=== PATIENT | female | born 1970 | race Caucasian/White ===

== ENCOUNTER 2020-06-05 08:28 | Outpatient (REF) | payer OTHER, SELFPAY ==
[2020-06-09 20:12] LABS: HPV mRNA E6/E7 Not Detected (Not Detected)
== END 2020-06-05 08:29 | disposition home or self-care (01) ==
LOC: HO.LAB 08:28
PROVIDERS: Visit Provider Obstetrics & Gynecology
DX: Z01.419 Encounter for gynecological examination (general) (routine) without abnormal findings (principal)
CPT/HCPCS: 87624; 88142

== ENCOUNTER → 2020-10-16 08:19 | Outpatient (BNVA) | payer OTHER, SELFPAY | PROVIDERS: PCP Internal Medicine; Visit Provider Obstetrics & Gynecology ==

== ENCOUNTER 2020-10-20 07:59 | Outpatient (REF) | payer OTHER, SELFPAY ==
--- NOTE | ~2020-10-20 | MM_ITS ---
EXAMINATION: MM DIAGNOSTIC DIGITAL BREAST TOMOSYNTHESIS, BILATERAL US DIAGNOSTIC ULTRASOUND BREAST, RIGHT CLINICAL INFORMATION: Palpable finding periareolar 9:00 right breast at clinical exam. Due for yearly. The lifetime risk of breast cancer based on the Tyrer-Cuzick Model is 10%. COMPARISON: Mammography: 01/19/2019, 01/06/2018, 09/08/2016, targeted left breast ultrasound 01/19/2019 and targeted right breast ultrasound 07/29/2015. TECHNIQUE: Digital breast tomosynthesis is performed in both the craniocaudal and mediolateral oblique views along with computer-aided detection (CAD). Synthesized 2D images are generated from the tomosynthesis. Ultrasound right breast is targeted to the area of clinical concern outer right breast. Grayscale imaging and color Doppler are performed without and with harmonics. FINDINGS: The breasts are heterogeneously dense, which may obscure small masses (ACR BI-RADS breast composition Category c). The right breast has a 2.1 cm periareolar mass 9:30 o'clock position with smooth but obscured margins corresponding to the clinical history. The remainder of the breasts show no significant mass or architectural abnormality. There is an no abnormal calcifications. The axilla and skin contours are unremarkable. Ultrasound right breast demonstrates dominant simple cyst 10:00 position corresponding to area of palpable concern and measuring 2.7 x 2.3 x 1.9 cm. There are several adjacent subcentimeter satellite cysts in the targeted area. No solid mass or architectural abnormality. Results are discussed with the patient at time of visit. MM/MM tomosynthesis diagnostic BI IMPRESSION: 1. Right: Fibrocystic changes with dominant simple cyst at site of palpable concern anterior outer right breast measuring approximately 2.7 x 2.3. x 1.9 cm. 2. Left: No significant changes from prior studies. ASSESSMENT: BI-RADS 2: Benign RECOMMENDATION: Routine annual mammography screening. This patient's information was entered into a reminder system with a target due date for their next mammogram.
== END 2020-10-20 08:00 | disposition home or self-care (01) ==
LOC: HO.MAMMO 07:59
PROVIDERS: Visit Provider Obstetrics & Gynecology
DX: N63.15 Unspecified lump in the right breast, overlapping quadrants (principal)
CPT/HCPCS: 76642; 77062; 77066

== ENCOUNTER → 2020-10-27 10:58 | Outpatient (BNVA) | payer OTHER, SELFPAY | PROVIDERS: PCP Internal Medicine; Visit Provider Obstetrics & Gynecology ==

== ENCOUNTER → 2020-10-31 09:12 | Outpatient (BNVA) | payer OTHER, SELFPAY | PROVIDERS: PCP Internal Medicine; Visit Provider Surgery ==

== ENCOUNTER → 2021-06-09 08:29 | Outpatient (BNVA) | payer OTHER, SELFPAY | PROVIDERS: PCP Internal Medicine; Visit Provider Obstetrics & Gynecology ==

== ENCOUNTER 2021-07-22 08:12 | Outpatient (REF) | payer OTHER, SELFPAY ==
--- NOTE | ~2021-07-22 | MM_ITS ---
EXAMINATION: MM SCREENING DIGITAL BREAST TOMOSYNTHESIS, BILATERAL CLINICAL INFORMATION: Screening. Asymptomatic. The lifetime risk of breast cancer based on the Tyrer-Cuzick Model is 8%. COMPARISON: Mammography: 10/20/2020, 01/19/2019, 01/06/2018, 09/06/2016; right breast ultrasound 10/20/2020, left breast ultrasound 01/19/2019 TECHNIQUE: Digital breast tomosynthesis is performed in both the craniocaudal and mediolateral oblique views along with computer-aided detection (CAD). Synthesized 2D images are generated from the tomosynthesis. FINDINGS: The breasts are heterogeneously dense, which may obscure small masses (ACR BI-RADS breast composition Category c). There is a fibrocystic parenchymal pattern again noted. Dominant cyst periareolar upper outer right breast is decreased. There is no significant mass or architectural abnormality. No abnormal calcifications. The axilla and skin contours are unremarkable. MM/MM tomosynthesis screening BI IMPRESSION: No mammographic evidence of malignancy. ASSESSMENT: BI-RADS 2: Benign RECOMMENDATION: Routine annual mammography screening. This patient's information was entered into a reminder system with a target due date for their next mammogram.
== END 2021-07-22 08:13 | disposition home or self-care (01) ==
LOC: HO.MAMMO 08:12
PROVIDERS: Visit Provider Obstetrics & Gynecology
DX: Z12.31 Encounter for screening mammogram for malignant neoplasm of breast (principal)
CPT/HCPCS: 77063; 77067

== ENCOUNTER → 2021-09-10 09:24 | Outpatient (BNVA) | payer OTHER, SELFPAY | PROVIDERS: PCP Internal Medicine; Referring Provider Internal Medicine; Visit Provider Physician Assistant ==

== ENCOUNTER 2022-01-11 09:05 | Day surgery (SDC) | payer OTHER, SELFPAY ==
[2022-01-05 16:15] VITALS: BMI 20.4
--- NOTE | 2022-01-08 10:10 | HO.ANESPROP2 ---
Documented by User: Clemencia Bey NP 01/08/22 10:10 HPI - Anesthesia Eval Consult details Narrative: 52yo Colonoscopy [facility] Active Problems Active Problems: All Active Problems (Updated 09/10/21 @ 09:56 by Christal Han PA-C) Encounter for screening colonoscopy (Acute) Breast lump (Acute) Well woman exam (Acute) Family History Family History (Updated 09/10/21 @ 09:54 by Christal Han PA-C) Unknown No family history of colorectal cancer Surgical History Surgical History (Updated 01/11/22 @ 09:11 by Carly Quintanilla) No pertinent past surgical history Social History Social History (Updated 09/10/21 @ 09:41 by Christal Han PA-C) Household Members Other:: single, 2 kids Alcohol intake: never Patient Tobacco Use Status: Never used Tobacco Use of substances other than those prescribed or required for medical reasons: No Are you DNR?: No Advance Directives: No Advance Directives Information Provided: Yes Advance Directives on File: No Sexual orientation: Straight/Heterosexual Gender identity: Female Meds Allergies Allergy/AdvReac Type Severity Reaction Status Date / Time amoxicillin Allergy Unknown unknown Verified 01/11/22 09:11 Home Medications Medication Instructions Recorded Confirmed Last Taken Type levonorgestrel 20 mcg/24 hours (7 intrauterine 06/05/20 10/31/20 Unknown History yrs) 52 mg intrauterine device (Mirena) Exam Exam Date and Time: January 08, 2022 1010 Height,Weight and Vital Signs: Height 5 ft 4 in Weight 53.977 kg Assessment and Plan Assessment Anesthesia Assessment: Chart Reviewed Documented by User: Svetlana Hickey MD 01/11/22 09:28 [facility] Family History Family History (Updated 09/10/21 @ 09:54 by Christal Han PA-C) Unknown No family history of colorectal cancer Family history of problems with anesthesia: No Surgical History Surgical History (Updated 01/11/22 @ 09:11 by Carly Quintanilla) No pertinent past surgical history History of Problems with Anesthesia: No Social History Social History (Updated 09/10/21 @ 09:41 by Christal Han PA-C) Household Members Other:: single, 2 kids Alcohol intake: never Patient Tobacco Use Status: Never used Tobacco Use of substances other than those prescribed or required for medical reasons: No Are you DNR?: No Advance Directives: No Advance Directives Information Provided: Yes Advance Directives on File: No Sexual orientation: Straight/Heterosexual Gender identity: Female Meds Allergies Allergy/AdvReac Type Severity Reaction Status Date / Time amoxicillin Allergy Unknown unknown Verified 01/11/22 09:11 Home Medications Medication Instructions Recorded Confirmed Last Taken Type levonorgestrel 20 mcg/24 hours (7 intrauterine 06/05/20 10/31/20 Unknown History yrs) 52 mg intrauterine device (Mirena) Exam Airway Mallampati Class: II TM Dist: >3cm Neck ROM: Full Heart: rrr Lungs: cta Assessment and Plan Assessment Anesthesia Assessment: Anesthesia Plan Discussed and Chart Reviewed Final Anesthetic Review Family History of Problems with Anesthesia: No History of Problems with Anesthesia: No NPO: Yes ASA Class: II Final Preanesthetic Review: No Changes in Pt Med Stat, Meds/Allgs Chart Reviewed and Consent Obtained/Reviewed Patient Risk: Intermediate Procedure Risk: Intermediate Anesthetic Plan Anesthetic Plan: MAC: Disposition: Standard PACU
[2022-01-11 09:20] VITALS: BMI 19.7
[2022-01-11 09:21] VITALS: BP 114/86; PULSE 73; RESP 16; TEMP 37.1; O2SAT 100
--- NOTE | 2022-01-11 09:31 | MHC.SHP ---
Pre-Procedural Eval Section A Date of Service: 01/11/22 The patient is an INPATIENT: No The History & Physical has been completed within 30 days and I have reviewed it.: No Section B Chief Complaint: screening Details of Present Illness: Colon cancer screening Relevant Family History (Specify if Yes): No Relevant Social History: None Present Medications: see Short Stay Collaborative assessment Medical History: Significant History (History of a breast lump) History of Previous Operations: No relevant previous surgery Allergies: Allergies Allergy/AdvReac Type Severity Reaction Status Date / Time amoxicillin Allergy Unknown unknown Verified 01/11/22 09:11 Review of Systems Sugical H&P ROS: Negative: Constitution, Cardiovascular, Respiratory and Gastrointestinal Exam Surgical H&P Exam: Normal: Heart, Normal: Lungs and Normal: Abdomen Plan Diagnosis/Plan: Unchanged I have reviewed the history and physical and performed a pertinent physical examination on my patient. No changes have occurred unless specified.
--- NOTE | 2022-01-11 09:35 | PM.OP ---
Brief Operative Note Date of Service: 01/11/22 Pre-op diagnosis: Colon cancer screening Post-op diagnosis: other (Diverticulosis, hemorrhoids) Procedure: COLONOSCOPY TILL CECUM Consent: Indications for the procedure and potential complications of bleeding, perforation, reaction to medications and missed diagnosis were discussed with the patient and informed consent was obtained. Instrument: Olympus PCF H 190 L variable stiffness pediatric colonoscope Monitoring: Vital signs and clinical assessment, intermittent blood pressure monitoring, continuous EKG monitoring, Pulse oximetry and Carbon Dioxide monitoring were done throughout the procedure. Colon withdrawl time was 11 minutes. Procedure: The patient was placed in the left lateral decubitis position and pre-procedure medications were administered. After a digital rectal examination of the ano-rectum, the video colonoscope was inserted into the rectum and advanced through the colon to the cecum. The colonoscope was slowly withdrawn in a retrograde panoramic fashion and the colon mucosa was carefully examined including a retroflexed view of the rectum. Findings and interventions are described below. Procedure Difficulty: Colon was long and tortuous and there was some loop formation. No maneuvers were required Findings: Terminal Ileum: Not evaluated Cecum: Normal Ascending Colon: Normal Transverse Colon: Normal Descending Colon: Normal Sigmoid Colon: Moderate diverticulosis Rectum: Normal Ano-rectum: Small internal hemorrhoids and mimi-anal skin tags Colon preparation: Excellent Impression and Post Procedure Diagnosis: Colonoscopy Findings: No polyps were detected Moderate diverticulosis seen in the []colon Small hemorrhoids on retroflexed exam. Plan: Repeat Colonoscopy in 10 years. Above findings were reviewed with the patient and diverticulosis handout was given in the discharge area Surgeon: Katharine Justice MD Anesthesia: MAC (Dr Saleem) Was an Slip Bridge Operator used for this Procedure?: Yes Slip Bridge Operator: Dasha Mcgowan Estimated blood loss (mL): 0 Pathology: none sent Condition: stable Disposition: PACU
[2022-01-11] MEDS: Lactated Ringers 1,000 ML 100 ML IVCONT (09:39)
--- NOTE | 2022-01-11 10:24 | P.OP_ITS ---
Operative Note Operative Note Date of Service: 01/11/22 Narrative: Pre-op diagnosis: Colon cancer screening Post-op diagnosis:?other (Diverticulosis, hemorrhoids) Procedure: COLONOSCOPY TILL CECUM Consent: Indications for the procedure and potential complications of bleeding, perforation, reaction to medications and missed diagnosis were discussed with the patient and informed consent was obtained. Instrument: Olympus PCF H 190 L variable stiffness pediatric colonoscope Monitoring: Vital signs and clinical assessment, intermittent blood pressure monitoring, continuous EKG monitoring, Pulse oximetry and Carbon Dioxide monitoring were done throughout the procedure. Colon withdrawl time was 11 minutes. Procedure: The patient was placed in the left lateral decubitis position and pre-procedure medications were administered. After a digital rectal examination of the ano-rectum, the video colonoscope was inserted into the rectum and advanced through the colon to the cecum. The colonoscope was slowly withdrawn in a retrograde panoramic fashion and the colon mucosa was carefully examined including a retroflexed view of the rectum. Findings and interventions are described below. Procedure Difficulty:? Colon was long and tortuous and there was some loop forma tion.? No maneuvers were required Findings: Terminal Ileum: Not evaluated Cecum:? Normal Ascending Colon:? Normal Transverse Colon:? Normal Descending Colon:? Normal Sigmoid Colon:? Moderate diverticulosis Rectum:? Normal Ano-rectum:? Small internal hemorrhoids and mimi-anal skin tags Colon preparation: Excellent ? Impression and Post Procedure Diagnosis: Colonoscopy Findings: No polyps were detected Moderate diverticulosis seen in the []colon Small hemorrhoids on retroflexed exam. Plan: Repeat Colonoscopy in 10 years. Above findings were reviewed with the patient and diverticulosis handout was given in the discharge area Surgeon: Katharine Justice MD Anesthesia:?MAC (Dr Saleem) Was an Director Of Distribution used for this Procedure?:?Yes Director Of Distribution:?Dasha Mcgowan Estimated blood loss (mL):?0 Pathology:?none sent Condition:?stable Disposition:?PACU
[2022-01-11 10:48] VITALS: BP 87/40; PULSE 79; RESP 16; TEMP 36.1; O2SAT 95
[2022-01-11 11:03] VITALS: BP 94/58; PULSE 65; RESP 18; O2SAT 98
[2022-01-11 11:18] VITALS: BP 100/59; PULSE 59; RESP 18; TEMP 36.2; O2SAT 97
== END 2022-01-11 11:48 | disposition home or self-care (01) ==
PROVIDERS: PCP Internal Medicine; Visit Provider Internal Medicine Gastroenterology
PROC: 0DJD8ZZ Inspection of Lower Intestinal Tract, Via Natural or Artificial Opening Endoscopic (ICD-10-PCS; CPT 45378; principal; 2022-01-11 10:10)
DX: Z12.11 Encounter for screening for malignant neoplasm of colon (principal); K57.30 Diverticulosis of large intestine without perforation or abscess without bleeding; K64.8 Other hemorrhoids; K64.4 Residual hemorrhoidal skin tags; Z88.1 Allergy status to other antibiotic agents
CPT/HCPCS: 45378

== ENCOUNTER 2022-06-24 09:04 | Outpatient (REF) | payer OTHER, SELFPAY ==
[2022-06-24 09:22] LABS: MANUAL DIFF FLAG NO
[2022-06-24 09:54] LABS: Basophils Percent Auto 0.5 % (0-2); Eosinophils Absolute Auto 0.1 X10*3/uL (0.0-0.4); Eosinophils Percent Auto 1.2 % (0-4); Hematocrit 43.7 % (37.0-47.0); Hemoglobin 14.3 g/dl (12.0-16.0); Imm Gran Abs Auto 0.03 X10*3/uL (0.00-0.03); Imm Gran Pct Auto 0.4 % (0.0-0.4); Lymphocytes Absolute Auto 2.1 X10*3/uL (1.2-4.9); Lymphocytes Percent Auto 28.7 % (20-40); Mean Corpuscular HGB Conc 32.7 g/dl (31.0-35.0); Mean Corpuscular Hemoglobin 29.3 pg (27.0-33.0); Mean Corpuscular Volume 89.5 fL (80.0-98.0); Monocytes Absolute Auto 0.5 X10*3/uL (0.1-1.2); Monocytes Percent Auto 7.1 % (2-11); Neutrophils Absolute Auto 4.6 x10*3/uL (2.0-8.3); Neutrophils Percent Auto 62.1 % (45-73); Platelet Count 326 X10*3/uL (160-400); Red Blood Count 4.88 X10*6/uL (4.20-5.50); Red Cell Distribution Width 12.7 % (11.0-16.0); White Blood Count 7.5 X10*3/uL (4.8-10.8)
[2022-06-24 12:05] LABS: Alanine Aminotransferase 21 U/L (0-31); Albumin Level 4.5 g/dL (3.5-5.0); Alkaline Phosphatase 73 U/L (39-117); Anion Gap 12 (12-20); Aspartate Amino Transferase 16 U/L (5-31); Bilirubin Total 0.7 mg/dL (0.0-1.0); Blood Urea Nitrogen 14 mg/dL (9-16); Calcium 9.8 mg/dL (8.4-10.2); Carbon Dioxide 28 mmol/L (22-29); Chloride 106 mmol/L (96-108); Cholesterol 223 mg/dL; Estimated Glomerular Filt Rate > 60; Glucose Fasting 89 mg/dL (60-99); HDL Cholesterol 69 mg/dL; LDL Cholesterol Calculated 139 mg/dl; Magnesium 2.2 mg/dL (1.6-2.6); Potassium 5.1 mmol/L (3.3-5.1); Sodium 141 mmol/L (135-145); TSH reflex Free T4 1.19 uIU/mL (0.32-4.0); Total Protein 6.9 g/dL (6.5-8.0); Triglycerides 77 mg/dL; Vitamin D 25-OH Total 38.7 ng/mL (>30)
[2022-06-24 12:23] LABS: Folate 15.4 ng/mL (> or = 4.0); Vitamin B12 389 pg/mL (200-900)
== END 2022-06-24 09:05 | disposition home or self-care (01) ==
LOC: HO.LAB 09:04
PROVIDERS: PCP Nurse Practitioner Family; Visit Provider Nurse Practitioner Family
DX: Z00.00 Encounter for general adult medical examination without abnormal findings (principal)
CPT/HCPCS: 36415; 80053; 80061; 82306; 82607; 82746; 83735; 84443; 85025

== ENCOUNTER 2022-07-23 08:36 | Outpatient (REF) | payer OTHER, SELFPAY ==
--- NOTE | ~2022-07-23 | MM_ITS ---
EXAMINATION: MM SCREENING DIGITAL BREAST TOMOSYNTHESIS, BILATERAL CLINICAL INFORMATION: Screening. Asymptomatic. The lifetime risk of breast cancer based on the Tyrer-Cuzick Model is 9%. COMPARISON: Mammography: 07/22/2021, 10/20/2020, 01/19/2019; right breast ultrasound 10/20/2020 TECHNIQUE: Digital breast tomosynthesis is performed in both the craniocaudal and mediolateral oblique views along with computer-aided detection (CAD). Synthesized 2D images are generated from the tomosynthesis. FINDINGS: The breasts are heterogeneously dense, which may obscure small masses (ACR BI-RADS breast composition Category c). There are no significant masses, abnormal calcifications, or other abnormalities. Been previously documented simple cyst upper outer right breast is substantially decreased from prior exam. No developing density or architectural abnormality. No significant changes. MM/MM tomosynthesis screening BI IMPRESSION: No mammographic evidence of malignancy. ASSESSMENT: BI-RADS 2: Benign RECOMMENDATION: Routine annual mammography screening. This patient's information was entered into a reminder system with a target due date for their next mammogram.
== END 2022-07-23 08:37 | disposition home or self-care (01) ==
LOC: HO.MAMMO 08:36
PROVIDERS: PCP Internal Medicine; Visit Provider Internal Medicine
DX: Z12.31 Encounter for screening mammogram for malignant neoplasm of breast (principal)
CPT/HCPCS: 77063; 77067

== ENCOUNTER → 2022-07-27 08:28 | Outpatient (BNVA) | payer OTHER, SELFPAY | PROVIDERS: PCP Internal Medicine; Visit Provider Obstetrics & Gynecology | DX: Z13.89 Encounter for screening for other disorder (principal) ==

== ENCOUNTER 2023-06-28 08:17 | Outpatient (AMB) | payer BC, SELFPAY ==
[2023-06-28 08:32] VITALS: BP 102/66; PULSE 61; O2SAT 100; BMI 20.6
--- NOTE | 2023-06-28 08:32 | A.OFFPC_ITS ---
Vital Signs 06/28/23 08:32 Height 5 ft 4 in Weight 120 lb 0.6 oz BMI 20.6 BP 102/66 Blood Pressure Location Lt brachial Position Sitting Pulse 61 Pulse Source Pulse Oximeter Pulse Oximetry (%) 100 Oxygen Delivery Method Room Air Intake Visit Reasons: Annual Exam Intake Note: Patient is here today for a physical. Allergies amoxicillin Allergy (Unknown, Verified 06/28/23 08:41) Rash Medication List - Last Reconciled 06/28/23 by TAE Estes levonorgestrel (Mirena) intrauterine Tobacco use date assessed: 06/28/23 Dental Screening Dental Screen Date: 06/28/23 Did you have a dental visit in the last 12 months?: Yes Did you have a dental problem in the last 6 months where you did not have access to dental care?: No Was dental information given to patient?: Patient has dentist HPI Annual Exam HPI Details Patient is a 53-year-old female who presents today for physical exam. Patient has an upcoming mammogram 07/2023. Colonoscopy up-to-date. Pap smear normal 05/2020. Patient declined tetanus vaccine. Denies concerns. No shortness of breath or chest pain. [facility] [place] Medical History (Updated 06/28/23 @ 08:50 by TAE Estes) Numbness of toes Surgical History History of colonoscopy Family History Unknown No family history of colorectal cancer Mother No problems noted. Father Alcoholism Social History Household Members Other:: single, 2 kids Housing: House Alcohol intake: never Patient Tobacco Use Status: Never used Tobacco service: No Current occupational status: employed Sexual orientation: Straight/Heterosexual Gender identity: Female Cognitive needs: No Hearing needs: No Vision needs: No Female Reproductive History Menstrual Age of Menarche: 15 Questionnaire PHQ-9 Over the last 2 weeks, how often have you been bothered by any of the following problems? 1. Little interest or pleasure in doing things: not at all 2. Feeling down, depressed, or hopeless: not at all 3. Trouble falling or staying asleep, or sleeping too much: not at all 4. Feeling tired or having little energy: not at all 5. Poor appetite or overeating: not at all 6. Feeling bad about yourself - or that you are a failure or have let yourself or your family down: not at all 7. Trouble concentrating on things, such as reading the newspaper or watching television: not at all 8. Moving or speaking so slowly that other people could have noticed. Or the opposite - being so fidgety or restless that you have been moving around a lot more than usual: not at all 9. Thoughts that you would be better off or of hurting yourself in some way: not at all Total score: 0 Depression Screening Interpretation: Negative Depression Screening Done: Yes 88994 - PHQ-9 Billing: Yes Source: Developed by Drs. Kash Villagomez, Valerie Hong, Cruz Taylor and colleagues, with an educational eliza from [employer]. Thrive Questionnaire Date Thrive assessed: 06/24/22 AUDIT C Alcohol Use Questionnaire (AUDIT-C) 1. How often do you have a drink containing alcohol?: Never 2. How many drinks containing alcohol do you have on a typical day when you are drinking?: 1 or 2 (0) 3. How often do you have six or more drinks on one occasion?: Never Total Score: 0 Score Reviewed/Action Taken: No BRANDI-7 AMB Questionnaire BRANDI-7 Date BRANDI - 7 assessed: 06/28/23 Feeling nervous, anxious, or on edge: 0 = Not at all Not being able to stop or control worryin = Not at all Worrying too much about different things: 0 = Not at all Trouble relaxin = Not at all Being so restless that it is hard to sit still: 0 = Not at all Becoming easily annoyed or irritable: 0 = Not at all Feeling afraid as if something awful might happen: 0 = Not at all Total BRANDI-7 score (0-4 normal; 5-9 mild; 10-14 moderate; 15-21 severe): 0 Source: Developed by Drs. Kash Villagomez, Valerie Hong, Cruz Taylor and colleagues, with an educational eliza from [employer]. BRANDI-7 Assessment Billing BRANDI-7 Assessment Tool: BRANDI-7 Assessment 64963 Review of Systems Const Denies body aches, Denies chills, Denies fever(s) and Denies headache(s) Eyes Denies change in vision ENT Denies dizziness, Denies otalgia, Denies headache(s), Denies nasal discharge, Denies sinus pain and Denies sore throat Card Denies chest pain, Denies edema, Denies lightheadedness and Denies dyspnea Resp Denies cough, Denies dyspnea and Denies wheezing GI Denies abdominal pain, Denies constipation, Denies diarrhea, Denies nausea and Denies vomiting Denies dysuria Musc Denies myalgias Skin/Breast Denies rash Neuro Denies dizziness and Denies headache(s) Aller/Immun Denies wheezing Physical exam (Primary Care) Vital Signs: Last Vital Signs Pulse 61 06/28/23 08:32 BP 102/66 06/28/23 08:32 Pulse Ox 100 06/28/23 08:32 Oxygen Delivery Method Room Air 06/28/23 08:32 BMI result Body Mass Index 20.6 Tobacco/Smoking Status: Tobacco use Status Tobacco use date assessed 06/28/23 06/28/23 08:39 Patient Tobacco Use Status Never used Tobacco 06/28/23 08:39 PHQ-9: PHQ-9 Score PHQ-9: Total score 0 06/28/23 08:39 Depression Screening Interpretation: Negative Thrive Assessment: Date of Thrive Assessment Date Thrive assessed 06/24/22 06/28/23 08:39 Const General: cooperative and no acute distress Orientation/consciousness: patient oriented x3 HENMT Head: Yes normocephalic and Yes atraumatic Ears: TM's normal bilaterally Face and sinus: Yes sinuses nontender Mouth: oropharynx normal and moist mucous membranes Throat: Yes posterior oropharynx normal Eyes General: appearance normal, both eyes and all related structures Pupils: Equal, round and reactive pupils present EOM: EOMs intact bilaterally Neck Neck: Yes normal visual inspection, Yes full ROM and Yes no lymphadenopathy Thyroid: Thyroid normal Resp Effort & Inspection: normal respiratory effort and able to speak in complete sentences Auscultation: clear to auscultation bilaterally, no crackles, no rales, no rhonchi and no wheezes Cardio Rate: regular rate Rhythm: regular rhythm Heart sounds: S1 normal heart sound present, S2 normal heart sound present and no murmurs GI Palpation (GI): Soft to palpation, not firm, nontender, no guarding, not rigid and no hepatosplenomegaly Auscultation: normal bowel sounds General: No CVA tenderness Back/Spine/Pelvis Back: No CVA tenderness Skin General skin exam: no rashes or lesions noted Neuro General: patient oriented x3 Cranial nerves: Yes Equal, round and reactive pupils present Gait exam (Neuro): Normal gait present Extrem General: Yes full ROM and No edema Assessment and Plan Assessment & Plan (1) Adult general medical exam: Comment: Tdap declined. Covid-19 IZs Pfizer x3. Pap smear (-) 05/2020 [facility]. Code(s): Z00.00 - Encounter for general adult medical examination without abnormal findings Plan: Repeat in 1 year Blood work ordered Orders: Orders Lipid Panel Today Z00.00 - Encounter for general adult medical examination without abnormal findings Comprehensive [place]. Panel Fast Today Z00.00 - Encounter for general adult medical examination without abnormal findings TSH reflex Free T4 Today Z00.00 - Encounter for general adult medical examination without abnormal findings Vitamin D 25-OH Total Today Z00.00 - Encounter for general adult medical examination without abnormal findings Complete Blood Count Auto Diff Today Z00.00 - Encounter for general adult medical examination without abnormal findings Coding Level of Care Code Est Pt Prev Care 40-64y(13079) Diagnoses Adult general medical exam Z00.00 Additional Codes BRANDI-7 Assessment Billing - BRANDI-7 Assessment Tool: BRANDI-7 Assessment [id number] ([id number])
== END 2023-06-28 08:55 | disposition home or self-care (01) ==
PROVIDERS: Visit Provider Nurse Practitioner Family
DX: Z00.00 Encounter for general adult medical examination without abnormal findings (principal)
CPT/HCPCS: 99396

== ENCOUNTER 2023-07-22 08:23 | Outpatient (REF) | payer BC, SELFPAY | END 2023-07-22 08:24 | disposition home or self-care (01) | LOC: HO.HMGCLDS 08:23 | PROVIDERS: PCP Internal Medicine; Visit Provider Nurse Practitioner Family | DX: Z00.00 Encounter for general adult medical examination without abnormal findings (principal) | CPT/HCPCS: 36415; 80053; 80061; 82306; 84443; 85025 ==

== ENCOUNTER → 2023-07-29 08:30 | Outpatient (BNV) | payer BC, SELFPAY | PROVIDERS: PCP Internal Medicine; Visit Provider Radiology Diagnostic Radiology | DX: Z12.31 Encounter for screening mammogram for malignant neoplasm of breast (principal) | CPT/HCPCS: 77063; 77067 ==

== ENCOUNTER 2023-07-29 08:31 | Outpatient (REF) | payer BC, SELFPAY | END 2023-07-29 08:32 | disposition home or self-care (01) | LOC: HO.MAMMO 08:31 | PROVIDERS: PCP Internal Medicine; Visit Provider Internal Medicine | DX: Z12.31 Encounter for screening mammogram for malignant neoplasm of breast (principal) | CPT/HCPCS: 77063; 77067 ==

== ENCOUNTER 2023-08-01 08:28 | Outpatient (AMB) | payer BC, SELFPAY ==
--- NOTE | 2023-08-01 08:31 | MHC.OFFVIS ---
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 No complaints. Last Pap/HPV was negative in 06/06 Last Mammogram was in 08/10, the results are still pending Last Colonoscopy was in 01/06, the recommendation was to repeat 10 years [facility] Medical History Numbness of toes Surgical History History of colonoscopy Family History Unknown No family history of colorectal cancer Mother No problems noted. Father Alcoholism Social History Household Members Other:: single, 2 kids Housing: House Alcohol intake: never Patient Tobacco Use Status: Never used Tobacco service: No Current occupational status: employed Sexual orientation: Straight/Heterosexual Gender identity: Female Cognitive needs: No Hearing needs: No Vision needs: No Female Reproductive History Menstrual Age of Menarche: 15 control method: progestin IUCD (Mirena 10/2019) Total pregnancies: 2 Full term: 2 Number of Living Children: 2 Date of last pap smear: 06/05/20 (neg pap and hpv) History of abnormal pap smear: No Date of Mammogram: 07/29/23 Review of Systems Const All systems reviewed & are unremarkable except as noted in HPI and below Card Reports as per HPI Resp Reports as per HPI GI Reports as per HPI and Reports no additional complaints Reports as per HPI Physical Exam Const General: cooperative, healthy appearing and comfortable Chest Chest palpation & inspection: normal inspection of the chest and normal palpation of entire chest wall Breast/axilla inspection: normal inspection of the breasts and normal inspection of the axillae Breast/axilla palpation: normal palpation of the breasts, normal palpation of the axillae and no axillary lymphadenopathy Resp Effort & Inspection: normal respiratory effort Auscultation: clear to auscultation bilaterally Percussion: percussion normal Cardio Palpation: normal PMI Rate: regular rate Rhythm: regular rhythm Heart sounds: no murmurs and no rubs Peripheral pulses: Peripheral pulses 2+ throughout GI Inspection: Yes normal to inspection Palpation (GI): Soft to palpation, nontender, no guarding, not rigid and No hepatosplenomegaly present Percussion: Yes normal to percussion Auscultation: normal bowel sounds Rectal Exam - Female: deferred General: Yes bladder normal to palpation External Female Exam: No lesion Speculum Exam - Vagina: normal appearance of the vagina, normal palpation, normal vaginal discharge and not erythematous Speculum Exam - Cervix: normal appearance of the cervix and normal palpation Bimanual exam- vagina & uterus: normal bimanual exam, normal palpation, uterine size normal, bladder normal to palpation, consistency normal and normal palpation Bimanual Exam- Adnexa, other: normal adnexae, no masses and no tenderness Assessment & Plan Assessment & Plan (1) Well woman exam: Code(s): Z01.419 - Encounter for gynecological examination (general) (routine) without abnormal findings Plan: Co testing not indicated this year. Counseled the patient about the recommended dietary allowance of 1200 mg of Calcium & 600 IU of vitamin D. The patient was instructed to perform monthly self-breast exams and schedule annual exam in a year. All questions answered and the patient verbalized understanding. Coding Level of Care Code Est Pt Prev Care 40-64y(51815) Diagnoses Well woman exam Z01.419
[2023-08-01 08:33] VITALS: BP 108/68; BMI 19.9
== END 2023-08-01 08:46 | disposition home or self-care (01) ==
PROVIDERS: Visit Provider Obstetrics & Gynecology
DX: Z01.419 Encounter for gynecological examination (general) (routine) without abnormal findings (principal)
CPT/HCPCS: 99396

== ENCOUNTER → 2023-08-01 08:28 | Outpatient (BNVA) | payer OTHER, SELFPAY | PROVIDERS: Visit Provider Obstetrics & Gynecology ==

== ENCOUNTER 2023-08-24 08:25 | Outpatient (AMB) | payer BC, SELFPAY ==
--- NOTE | 2023-08-24 08:29 | A.OFFPC_ITS ---
Vital Signs 08/24/23 08:32 Height 5 ft 4 in Weight 118 lb 6 oz BMI 20.3 BP 120/70 Blood Pressure Location Lt brachial Position Sitting Intake Visit Reasons: Abnormal labs/High Cholesterol Intake Note: Patient is here to follow up on abnormal lab with high cholesterol. Eligibility Counselor Required: No Accounts Specialist: Not Required per policy Accompanied by: Self / Same As Patient Allergies amoxicillin Allergy (Unknown, Verified 08/24/23 09:10) Rash Medication List - Last Reconciled 08/24/23 by Christophe Ayon MD levonorgestrel (Mirena) intrauterine Tobacco use date assessed: 08/24/23 Dental Screening Dental Screen Date: 08/24/23 Did you have a dental visit in the last 12 months?: Yes Did you have a dental problem in the last 6 months where you did not have access to dental care?: No Was dental information given to patient?: Patient has dentist HPI Abnormal labs/High Cholesterol HPI Details 53-year-old female presents to the [facility] to discuss her medical issues. I am assuming her care as her previous primary care provider has left the practice. Recent blood work done in June showed patient had an elevated blood cholesterol. Patient presents to discuss the findings. She is in good health and able to do all activities of daily living. Nonsmoker and currently on no medications. [facility] Medical History (Updated 08/24/23 @ 09:14 by Christophe Ayon MD) Hyperlipidemia, unspecified Numbness of toes Surgical History History of colonoscopy Family History Unknown No family history of colorectal cancer Mother No problems noted. Father Alcoholism Other Substance use disorder Social History Household Members Other:: single, 2 kids Housing: House Alcohol intake: never Patient Tobacco Use Status: Never used Tobacco e-Cigarette/Vaping Use: Never Used Second Hand Smoke Exposure: No service: No Current occupational status: employed Sexual orientation: Straight/Heterosexual Gender identity: Female Cognitive needs: No Hearing needs: No Vision needs: No Female Reproductive History Menstrual Age of Menarche: 15 Questionnaire PHQ-9 Over the last 2 weeks, how often have you been bothered by any of the following problems? 1. Little interest or pleasure in doing things: not at all 2. Feeling down, depressed, or hopeless: not at all 3. Trouble falling or staying asleep, or sleeping too much: not at all 4. Feeling tired or having little energy: not at all 5. Poor appetite or overeating: not at all 6. Feeling bad about yourself - or that you are a failure or have let yourself or your family down: not at all 7. Trouble concentrating on things, such as reading the newspaper or watching television: not at all 8. Moving or speaking so slowly that other people could have noticed. Or the opposite - being so fidgety or restless that you have been moving around a lot more than usual: not at all 9. Thoughts that you would be better off or of hurting yourself in some way: not at all Total score: 0 Depression Screening Interpretation: Negative Depression Screening Done: Yes Source: Developed by Drs. Kash Villagomez, Valerie Hong, Cruz Taylor and colleagues, with an educational eliza from [employer]. Thrive Questionnaire Date Thrive assessed: 08/24/23 I am a: Patient What is your living situation today?: I have a steady place to live Within the past 12 months, did the food you bought not last and you didn't have the money to get more?: Never true Within the past 12 months, did you worry whether your food would run out before you got money to buy more?: Never true Do you have trouble paying for medicines?: No Do you have trouble getting transportation to medical appointments?: No Do you have trouble paying your heating and electricity bill?: No Do you have trouble taking care of your child, family member or friend?: No Do you have trouble with day-to-day activities such as bathing, preparing meals, shopping, managing finances, etc.?: No Are you currently unemployed and looking for a job?: No Are you interested in more education?: No Currently or been in a relationship where the following occur: no concerns reported THRIVE Score: 0 AUDIT C Alcohol Use Questionnaire (AUDIT-C) 1. How often do you have a drink containing alcohol?: Never Total Score: 0 BRANDI-7 AMB Questionnaire BRANDI-7 Date BRANDI - 7 assessed: 08/24/23 Feeling nervous, anxious, or on edge: 0 = Not at all Not being able to stop or control worryin = Not at all Worrying too much about different things: 0 = Not at all Trouble relaxin = Not at all Being so restless that it is hard to sit still: 0 = Not at all Becoming easily annoyed or irritable: 0 = Not at all Feeling afraid as if something awful might happen: 0 = Not at all Total BRANDI-7 score (0-4 normal; 5-9 mild; 10-14 moderate; 15-21 severe): 0 Source: Developed by Drs. Kash Villagomez, Valerie Hong, Cruz Taylor and colleagues, with an educational eliza from [employer]. Physical exam (Primary Care) Vital Signs: Last Vital Signs BP 120/70 08/24/23 08:32 Care Plan Goal for BP management: Blood pressure is in range. Currently on no medications. BMI result Body Mass Index 20.3 Tobacco/Smoking Status: Tobacco use Status Tobacco use date assessed 08/24/23 08/24/23 08:37 Patient Tobacco Use Status Never used Tobacco 08/24/23 08:37 e-Cigarette/Vaping Use Never Used 08/24/23 08:37 PHQ-9: PHQ-9 Score PHQ-9: Total score 0 08/24/23 08:37 Depression Screening Interpretation: Negative Thrive Assessment: Date of Thrive Assessment Date Thrive assessed 08/24/23 08/24/23 08:37 Currently or been in a relationship where the following occur: no concerns reported Const General: cooperative and healthy appearing Nutritional Appearance: well nourished Orientation/consciousness: patient oriented x3 Limitations: no limitations HENMT Head: Yes normal to inspection Eyes General: appearance normal, both eyes and all related structures Neck Neck: Yes normal visual inspection Chest Chest palpation & inspection: normal palpation of entire chest wall Resp Effort & Inspection: normal respiratory effort Neuro General: patient oriented x3 Assessment and Plan Assessment & Plan (1) Hyperlipidemia, unspecified: Code(s): E78.5 - Hyperlipidemia, unspecified Plan: 15 minute discussion on the risks of elevated cholesterol. Patient has no other risk factors. She is a nonsmoker, her blood pressure is in normal range, and no family risk factors. She is hesitating to start medications. I agreed that we can control her elevated cholesterol with diet and exercise. Repeat lipid panel in 6 months. Coding Level of Care Code Est Pt Level 4 (65041) Diagnoses Hyperlipidemia, unspecified E78.5
[2023-08-24 08:32] VITALS: BP 120/70; BMI 20.3
== END 2023-08-24 09:11 | disposition home or self-care (01) ==
PROVIDERS: PCP Internal Medicine; Visit Provider Internal Medicine
DX: E78.5 Hyperlipidemia, unspecified (principal)
CPT/HCPCS: 99214

== ENCOUNTER 2024-06-26 08:21 | Outpatient (REF) | payer BC, SELFPAY ==
[2024-06-26 10:30] LABS: Hemoglobin 13.9 g/dl (12.0-16.0); Mean Corpuscular HGB Conc 33.1 g/dl (31.0-35.0); Mean Corpuscular Hemoglobin 30.4 pg (27.0-33.0); Mean Corpuscular Volume 91.9 fL (80.0-98.0); Mean Platelet Volume 10.5 fL (9.4-12.3); Platelet Count 267 X10*3/uL (160-400); Red Blood Count 4.57 X10*6/uL (4.20-5.50); Red Cell Distribution Width 13.7 % (11.0-16.0)
[2024-06-26 10:43] LABS: Appearance Urine Turbid; Color Urine Yellow; Glucose Urine UA Negative (Negative); Leukocyte Esterase Urine Negative (Negative); Nitrite Urine Negative (Negative); PH 5.5 (5.0-9.0); Specific Gravity - Urine >= 1.030 (1.005-1.025); UMIC TRIGGER UA YES; Urine Blood Small (1+) (Negative); Urine Ketones Trace mg/dL (Negative); Urine Protein Negative (Neg-Trace)
[2024-06-26 10:48] LABS: Bacteria Urine 1+ (None Seen); Hyaline Casts Urine 0-2 /LPF (0-2); WBC Urine 0-5 /HPF (0-5)
[2024-06-26 10:51] LABS: Alanine Aminotransferase 24 U/L (0-31); Albumin Level 4.3 g/dL (3.5-5.0); Alkaline Phosphatase 64 U/L (39-117); Anion Gap 13 (12-20); Aspartate Amino Transferase 22 U/L (5-31); Bilirubin Direct 0.2 mg/dL (0.0-0.5); Bilirubin Total 0.9 mg/dL (0.0-1.0); Blood Urea Nitrogen 16 mg/dL (9-16); Carbon Dioxide 28 mmol/L (22-29); Chloride 104 mmol/L (96-108); Cholesterol 226 mg/dL (<200); Estimated Glomerular Filt Rate > 60; Glucose Random 90 mg/dL (60-115); HDL Cholesterol 76 mg/dL (>40); LDL Cholesterol Calculated 136 mg/dL (<100); Potassium 4.4 mmol/L (3.3-5.1); Sodium 141 mmol/L (135-145); Total Protein 6.9 g/dL (6.5-8.0); Triglycerides 73 mg/dL (<150)
[2024-06-26 11:11] LABS: Thyroid Stimulating Hormone 1.62 uIU/mL (0.32-4.0)
--- OUTSIDE RECORDS SUMMARY | 2024-06-27 18:48 | XMS_ITS | Patient Health Record ---
Author Organization [facility] Address [address] [place] [address] Care Team Providers Care Switch Operator Name Role Phone Tonya Mccrary Primary Care Provider Unavaillizbet e Angel LuisRadha Unavailable [phone] Allergies Allergen (clinical drug ingredient) Drug/Non Drug Allergy documented on EMR Reaction Allergy Type Onset Date Status amoxicillin Amoxicillin rash Drug Allergy Act mary Reason For Referral No Information Medications Medication SIG (Take, Route, Frequency, Duration) Notes Start Date End Date Status Mirena Active Voltaren 1 % as directed Externally Active Immunizations Vaccine Route Administration Date Status Comme nts COVID-19 Pfizer BioNTech Vaccine Unknown 03/06/2021 Administered 09/12/20,10/04/20 Social History Tobacco Use: Social History Observation Description Date Details (start date - stop date) Never Smoker NA - NA Tobacco Use/Smoking Question Answer Notes Are you a: nonsmoker Additional Findings: Tobacco Non-User Current no n-smoker Alcohol Screen Question Answer Notes Did you have a drink containing alcohol in the p ast year? No Points 0 Interpretation Negative Tobacco use other than smoking: Question Answer Notes Are you an other tobacco user? No Problems Problem Type SNOMED Code ICD Code Onset Dates Problem Status W/U Status Risk Notes Problem Acquired hammer toe of left foot ([id number] 103) Other hammer toe(s) (acquired), left foot (M20.42) Active confirmed Plan Of Treatment Pending Test Test Name Order Date X ray : Foot, left 3V 08/16/2022 Insurance Providers Payer Name Payer Address Payer Phone Subscriber Number Group Number Insured Name Patient Relationship to Insured Coverage Start Date Coverage End Date [facility] [address] [place] [address] [phone] [id number] Epi Viera Spouse - patient is the spouse of the insured Medical (General) History Surgical History Surgery Date(Month/Year)
== END 2024-06-26 08:22 | disposition home or self-care (01) ==
LOC: HO.HMGCLDS 08:21
PROVIDERS: PCP Internal Medicine; Visit Provider Internal Medicine
DX: E78.5 Hyperlipidemia, unspecified (principal)
CPT/HCPCS: 36415; 80048; 80061; 80076; 81001; 84443; 85027

== ENCOUNTER 2024-07-05 08:56 | Outpatient (AMB) | payer BC, SELFPAY ==
--- NOTE | 2024-07-05 09:02 | A.OFFPC_ITS ---
Vital Signs 07/05/24 09:04 Height 5 ft 4 in Weight 119 lb BMI 20.4 BP 110/72 Blood Pressure Location Lt brachial Position Sitting Pulse 69 Pulse Source Pulse Oximeter Pulse Oximetry (%) 98 Oxygen Delivery Method Room Air Intake Visit Reasons: Annual exam Intake Note: Patient is here today for a physical. Pt decline flu shot today. Evaporator Operator Molasses Required: No Inspecting And Testing Lead Hand: Not Required per policy Accompanied by: Self / Same As Patient Allergies amoxicillin Allergy (Unknown, Verified 07/05/24 09:04) Rash Tobacco use date assessed: 07/05/24 Dental Screening Dental Screen Date: 08/24/23 [facility] Medical History (Updated 07/05/24 @ 09:23 by Christophe Ayon MD) Paresthesia of left foot Hyperlipidemia, unspecified Numbness of toes Surgical History (Updated 07/05/24 @ 09:09 by Christophe Ayon MD) History of colonoscopy (~01/06/22) Family History Unknown No family history of colorectal cancer Mother No problems noted. Father Alcoholism Other Substance use disorder Social History Household Members Other:: single, 2 kids Housing: House Alcohol intake: never Patient Tobacco Use Status: Never used Tobacco e-Cigarette/Vaping Use: Never Used Second Hand Smoke Exposure: No service: No Current occupational status: employed Sexual orientation: Straight/Heterosexual Gender identity: Female Cognitive needs: No Hearing needs: No Vision needs: No Female Reproductive History Menstrual Age of Menarche: 15 Questionnaire PHQ-9 Over the last 2 weeks, how often have you been bothered by any of the following problems? 1. Little interest or pleasure in doing things: not at all 2. Feeling down, depressed, or hopeless: not at all 3. Trouble falling or staying asleep, or sleeping too much: several days 4. Feeling tired or having little energy: not at all 5. Poor appetite or overeating: not at all 6. Feeling bad about yourself - or that you are a failure or have let yourself or your family down: not at all 7. Trouble concentrating on things, such as reading the newspaper or watching television: not at all 8. Moving or speaking so slowly that other people could have noticed. Or the opposite - being so fidgety or restless that you have been moving around a lot more than usual: not at all 9. Thoughts that you would be better off or of hurting yourself in some way: not at all Total score: 1 Source: Developed by Drs. Kash Villagomez, Valerie Hong, Cruz Taylor and colleagues, with an educational eliza from [employer]. Thrive Questionnaire Date Thrive assessed: 07/05/24 I am a: Patient What is your living situation today?: I have a steady place to live Within the past 12 months, did the food you bought not last and you didn't have the money to get more?: Never true Within the past 12 months, did you worry whether your food would run out before you got money to buy more?: Never true Do you have trouble paying for medicines?: No Do you have trouble getting transportation to medical appointments?: No Do you have trouble paying your heating and electricity bill?: No Do you have trouble taking care of your child, family member or friend?: No Do you have trouble with day-to-day activities such as bathing, preparing meals, shopping, managing finances, etc.?: No Are you currently unemployed and looking for a job?: No Are you interested in more education?: No Please select the resources that you would like help with: None Currently or been in a relationship where the following occur: No concerns reported THRIVE Score: 0 AUDIT C Alcohol Use Questionnaire (AUDIT-C) 1. How often do you have a drink containing alcohol?: 2-4 times a month 2. How many drinks containing alcohol do you have on a typical day when you are drinking?: 1 or 2 3. How often do you have six or more drinks on one occasion?: Never Total Score: 2 BRANDI-7 AMB Questionnaire BRANDI-7 Date BRANDI - 7 assessed: 08/24/23 Feeling nervous, anxious, or on edge: 0 = Not at all Not being able to stop or control worryin = Not at all Worrying too much about different things: 0 = Not at all Trouble relaxin = Not at all Being so restless that it is hard to sit still: 0 = Not at all Becoming easily annoyed or irritable: 0 = Not at all Feeling afraid as if something awful might happen: 0 = Not at all Total BRANDI-7 score (0-4 normal; 5-9 mild; 10-14 moderate; 15-21 severe): 0 Source: Developed by Drs. Kash Villagomez, Valerie Hong, Cruz Taylor and colleagues, with an educational eliza from [employer]. Physical exam (Primary Care) Vital Signs: Last Vital Signs Pulse 69 07/05/24 09:04 BP 110/72 07/05/24 09:04 Pulse Ox 98 07/05/24 09:04 Oxygen Delivery Method Room Air 07/05/24 09:04 BMI result Body Mass Index 20.4 Tobacco/Smoking Status: Tobacco use Status Tobacco use date assessed 07/05/24 07/05/24 09:08 Patient Tobacco Use Status Never used Tobacco 07/05/24 09:08 e-Cigarette/Vaping Use Never Used 07/05/24 09:08 PHQ-9: PHQ-9 Score PHQ-9: Total score 1 07/05/24 09:08 Thrive Assessment: Date of Thrive Assessment Date Thrive assessed 07/05/24 07/05/24 09:08 Currently or been in a relationship where the following occur: No concerns reported Coding Level of Care Code Est Pt Level 4 (58005) Complex EM visit Add On G2211 Diagnoses Hyperlipidemia, unspecified E78.5 Paresthesia of left foot R20.2 Assessment & Plan Assessment & Plan (1) Hyperlipidemia, unspecified: Code(s): E78.5 - Hyperlipidemia, unspecified Category: Medical Plan: See below (2) Paresthesia of left foot: Code(s): R20.2 - Paresthesia of skin Category: Medical Plan: Patient did not have any health from the yoke presser referral. An orthopedic surgeon specializing in the foot will be identified and I will make a referral there. Calle's neuroma needs to be ruled out. Plan History of Present Illness The patient is a 54-year-old female presenting with follow-up concerns for hypercholesterolemia and persistent numbness in her left foot. Her cholesterol management shows an improvement under current lifestyle modifications, with LDL cholesterol reduced from 154 to 136 mg/dL, yet still above the recommended range. She is a non-smoker with no family history of heart disease, hypertension, or current medication usage, resulting in a calculated cardiovascular risk of less than 10%, and thus no pharmacological intervention is recommended at this time. The left foot numbness has been persistent and lingering, described as episodic and not constant, though it can intensify and become painful after wearing certain types of shoes, regardless of their size or support characteristics. The patient experiences worsened symptoms during shoe-wearing activities but notes improvement when using open-toed footwear, especially during warmer months. Previous consultation with a yoke presser identified high arches, but suggested interventions, such as using specialized sneakers, did not yield relief. Chronic numbness remains localized to the foot and occasionally feels more acute during specific activities like yard work. Social History - Employment: Works at a [employer], indicating a sedentary desk job. - Exercise: Engages in regular activities without restriction. - Smoking: No smoking history. - Family history: No family history of heart disease or hypertension. - Vaccination: Declined flu vaccine for the current season. Review of Systems - Neurological: Reports numbness in the left foot localized to the toes. - General: Denies incontinence issues, vision problems during night driving, and able to perform daily activities without significant limitation. Physical Exam General: Appearance normal, both eyes and all related structures Nutritional Appearance: Well nourished Orientation/consciousness: Patient oriented x3 Limitations: Numbness in left foot, but no limitations in activities Head: Normal to inspection Neck: Normal visual inspection Chest: Normal palpation of entire chest wall Respiratory: Normal respiratory effort Neurology: Numbness in left foot, patient oriented x3 Results - Labs: Kidney functions, liver functions, and thyroid panel within normal ranges. Plan - Continue monitoring hypercholesterolemia through lifestyle modifications, including diet and exercise. Re-evaluate cholesterol levels in six months. - Referral to an senior capital markets specialist with a focus on potential Calle?s Neuroma for the left foot's localized neuropathy. Consider MRI if directed by the specialist. - No current pharmacological treatment initiated for cholesterol owing to low cardiovascular risk assessment. - Follow-up examination scheduled in six months with the possibility of an orthopedic consultation in the meantime. Patient was informed and verbally consented to the use of an ambient scribe for clinic note documentation during this visit. Discussion Notes During this visit, I reviewed the patient?s recent laboratory findings, noting that kidney, liver, and thyroid function tests returned normal. The patient's LDL cholesterol level has decreased but remains above target; however, given her low cardiovascular risk profile due to positive personal and family medical history, pharmacological treatment was not recommended. I discussed and confirmed with the patient that continued focus on dietary habits and physical activity would suffice at this stage, with reassessment planned in six months. I addressed the foot neuropathy, considering the limited improvement from previous podiatric intervention, and proposed a referral to an senior capital markets specialist to further explore possibilities such as Calle?s Neuroma. Possible interventions and diagnostic imaging such as MRI were discussed, depending on the specialist's assessment. I reassured her about the absence of vascular issues like blood vessel blockage, given the localized nature of her symptoms. Anticipatory guidance about appropriate follow-up and specialist consultation was provided. Patient Instructions - Continue with current dietary and exercise regimen to manage cholesterol levels. - Scheduled next cholesterol level evaluation in approximately six months. - Be proactive in wearing footwear that does not aggravate foot numbness; opt for open-toed shoes when possible. - Follow up with senior capital markets specialist for left foot numbness as referred. - Contact the clinic for scheduling the next routine visit as discussed. - Report any new or worsening symptoms immediately.
[2024-07-05 09:04] VITALS: BP 110/72; PULSE 69; O2SAT 98; BMI 20.4
--- OUTSIDE RECORDS SUMMARY | 2024-07-05 09:11 | XMS_ITS | Patient Health Record ---
Author [facility] Address [address] [place] [address] Care Team Providers Care Kaiako Kura Tuarua Name Role Phone Tonya Mccrary Primary Care Provider Unavaillizbet e Angel LuisRadha Unavailable [phone] Allergies Allergen (clinical drug ingredient) Drug/Non Drug [...] Problem Acquired hammer toe of left foot ([id number] 103) Other hammer toe(s) (acquired), left foot (M20.42) Active confirmed Plan Of Treatment Pending Test Test Name Order Date X ray : Foot, left 3V 08/16/2022 Insurance Providers Payer Name Payer Address Payer Phone Subscriber Number Group Number Insured Name Patient Relationship to Insured Coverage Start Date Coverage End Date [facility] [address] [place] [address] [phone] [id number] Epi Viera Spouse - patient is the spouse of the insured Medical (General) History Surgical History Surgery Date(Month/Year)
== END 2024-07-05 09:23 | disposition home or self-care (01) ==
PROVIDERS: PCP Internal Medicine; Visit Provider Internal Medicine
DX: E78.5 Hyperlipidemia, unspecified (principal); R20.2 Paresthesia of skin

== ENCOUNTER 2024-08-07 08:00 | Outpatient (REF) | payer BC, SELFPAY | END 2024-08-07 08:01 | disposition home or self-care (01) | LOC: HO.MAMMO 08:00 | PROVIDERS: PCP Internal Medicine; Visit Provider Internal Medicine | DX: Z12.31 Encounter for screening mammogram for malignant neoplasm of breast (principal) | CPT/HCPCS: 77063; 77067 ==

== ENCOUNTER → 2024-08-07 08:00 | Outpatient (BNV) | payer BC, SELFPAY | PROVIDERS: PCP Internal Medicine; Visit Provider Internal Medicine | DX: Z12.31 Encounter for screening mammogram for malignant neoplasm of breast (principal) | CPT/HCPCS: 77063; 77067 ==

== ENCOUNTER 2024-10-04 09:06 | Outpatient (REF) | payer BC, SELFPAY ==
[2024-10-10 14:14] LABS: HPV Genotype 16 Negative (Negative); HPV Genotype 18 Negative (Negative); HPV High Risk Negative (Negative)
== END 2024-10-04 09:07 | disposition home or self-care (01) ==
LOC: HO.LNP 09:06
PROVIDERS: PCP Internal Medicine; Visit Provider Obstetrics & Gynecology
DX: Z30.432 Encounter for removal of intrauterine contraceptive device (principal)
CPT/HCPCS: 58301; 81025; 87626; 88175

== ENCOUNTER 2024-10-04 09:06 | Outpatient (AMB) | payer BC, SELFPAY ==
--- NOTE | 2024-10-04 09:14 | A.OFFVIS_ITS ---
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 No complaints. The patient has Mirena IUD 5 years ago and has been amenorrheic since then. Last Pap/HPV was negative in 06/06 Last Mammogram was BI-RADS 1 in 08/11 Last Colonoscopy was done in 01/06, recommendation was to repeat years [facility] Medical History Paresthesia of left foot Hyperlipidemia, unspecified Numbness of toes Surgical History History of colonoscopy (~01/06/22) Family History Unknown No family history of colorectal cancer Mother No problems noted. Father Alcoholism Other Substance use disorder Social History Household Members Other:: single, 2 kids Housing: House Alcohol intake: never Patient Tobacco Use Status: Never used Tobacco e-Cigarette/Vaping Use: Never Used Second Hand Smoke Exposure: No service: No Current occupational status: employed Sexual orientation: Straight/Heterosexual Gender identity: Female Cognitive needs: No Hearing needs: No Vision needs: No Female Reproductive History Menstrual Age of Menarche: 15 Date of last pap smear: 06/05/20 Date of Mammogram: 08/07/24 Review of Systems Const All systems reviewed & are unremarkable except as noted in HPI and below Card Reports as per HPI Resp Reports as per HPI GI Reports as per HPI and Reports no additional complaints Reports as per HPI Physical Exam Vital Signs: Last Vital Signs BP 116/70 10/04/24 09:15 BMI result Body Mass Index 20.3 Const General: cooperative, healthy appearing and comfortable Chest Chest palpation & inspection: normal inspection of the chest and normal palpation of entire chest wall Breast/axilla inspection: normal inspection of the breasts and normal inspection of the axillae Breast/axilla palpation: normal palpation of the breasts, normal palpation of the axillae and no axillary lymphadenopathy Resp Effort & Inspection: normal respiratory effort Auscultation: clear to auscultation bilaterally Percussion: percussion normal Cardio Palpation: normal PMI Rate: regular rate Rhythm: regular rhythm Heart sounds: no murmurs and no rubs Peripheral pulses: Peripheral pulses 2+ throughout GI Inspection: Yes normal to inspection Palpation (GI): Soft to palpation, nontender, no guarding, not rigid and No hepatosplenomegaly present Percussion: Yes normal to percussion Auscultation: normal bowel sounds Rectal Exam - Female: deferred General: Yes bladder normal to palpation External Female Exam: No lesion Speculum Exam - Vagina: normal appearance of the vagina, normal palpation, normal vaginal discharge and not erythematous Speculum Exam - Cervix: normal appearance of the cervix, normal palpation and Other cervical findings present (IUD string in place) Bimanual exam- vagina & uterus: normal bimanual exam, normal palpation, uterine size normal, bladder normal to palpation, consistency normal and normal palpation Bimanual Exam- Adnexa, other: normal adnexae, no masses and no tenderness Office Procedures IUD Insert/Removal Details Details: Counseling/Consent: After discussing with the patient the risks of the procedure including bleeding, infection, scar tissue formation, , possible injury to blood vessels or nerves, chronic arm pain, blood transfusion, and irregular unpredictable bleeding Alternative options were discussed with the patient including but not limited: Do nothing. The patient signed the consent and agreed with the plan; all questions answered. Urine test was done in the office and was negative Preop dx: Requesting IUD removal Op: IUD removal Post op dx: same EBL= 10 cc Procedure: The patient was put in the dorsal lithotomy position a speculum was inserted in the vagina the IUD thread identified. Using a Kellie clamp the thread was grasped and the IUD pulled out with no complications. The patient tolerated the procedure well and was advised to use a different method for contraception. Discharge instructions: Instructions were given to the pt to call if temp>100.4, abdominal pain heavy vaginal bleeding, n/v occur. The patient verbalized understanding and all questions answered. This note was generated with a voice recognition program. Some errors may have been overlooked during the review of this note. Sometimes these errors may affect the content or meaning of a given sentence. 91636-WDM Removal Procedure code (CPT) selection complete Assessment & Plan Assessment & Plan (1) Well woman exam: Code(s): Z01.419 - Encounter for gynecological examination (general) (routine) without abnormal findings Category: Medical Plan: Co testing done. Counseled the patient about the recommended dietary allowance of 1200 mg of Calcium & 600 IU of vitamin D. Instructions given the patient to schedule next screening Mammogram in 08/12. The patient was instructed to perform monthly self-breast exams and schedule annual exam in a year. All questions answered and the patient verbalized understanding. (2) Encounter for IUD removal: Code(s): Z30.432 - Encounter for removal of intrauterine contraceptive device Category: Medical Plan: Discussed with the patient the average age of menopause being 51, the patient will be 55 in 3 months, benefits risks of IUD removal were discussed with the patient, offered the patient IUD removal , FSH/LH in 7 days meanwhile use contraceptive method backup till confirmation of FSH LH in the menopausal range. Instructions given the patient to schedule a 2 week follow-up appointment and to call if bleeding occurs. All questions answered, the patient verbalized understanding. Mirena IUD removed, see procedure note Orders: Orders Follicle Stimulating Hormone Today N91.2 - Amenorrhea, unspecified Lutenizing Hormone Today N91.2 - Amenorrhea, unspecified Coding Level of Care Code Procedure Only Diagnoses Well woman exam Z01.419 Encounter for IUD removal Z30.432 CPT Codes Details - CPT: 81919-MZV Removal ([id number])
[2024-10-04 09:15] VITALS: BP 116/70; BMI 20.3
== END 2024-10-04 10:07 | disposition home or self-care (01) ==
LOC: HO.HWS 09:06
PROVIDERS: PCP Internal Medicine; Visit Provider Obstetrics & Gynecology
DX: Z01.419 Encounter for gynecological examination (general) (routine) without abnormal findings (principal); Z30.432 Encounter for removal of intrauterine contraceptive device; Z32.02 Encounter for pregnancy test, result negative
CPT/HCPCS: 58301; 99396; 99459

== ENCOUNTER 2024-10-08 08:05 | Outpatient (REF) | payer BC, SELFPAY ==
[2024-10-09 05:13] LABS: Follicle Stimulating Hormone 72.5 mIU/mL; Lutenizing Hormone 55.6 mIU/mL
== END 2024-10-08 08:06 | disposition home or self-care (01) ==
LOC: HO.HMGCLDS 08:05
PROVIDERS: PCP Internal Medicine; Visit Provider Obstetrics & Gynecology
DX: N91.2 Amenorrhea, unspecified (principal)
CPT/HCPCS: 36415; 83001; 83002

== ENCOUNTER 2024-10-16 12:41 | Outpatient (AMB) | payer BC, SELFPAY ==
--- NOTE | 2024-10-16 12:41 | A.OFFVIS_ITS ---
Intake Visit Reasons: lab results Allergies amoxicillin Allergy (Unknown, Verified 10/04/24 09:25) Rash HPI Comments Details: The patient is schedule telehealth visit for follow-up lab results. FSH/LH after IUD removal were 72.5/55.6 PFSH Medical History Paresthesia of left foot Hyperlipidemia, unspecified Numbness of toes Surgical History History of colonoscopy (~01/06/22) Family History Unknown No family history of colorectal cancer Mother No problems noted. Father Alcoholism Other Substance use disorder Social History Household Members Other:: single, 2 kids Housing: House Alcohol intake: never Patient Tobacco Use Status: Never used Tobacco e-Cigarette/Vaping Use: Never Used Second Hand Smoke Exposure: No service: No Current occupational status: employed Sexual orientation: Straight/Heterosexual Gender identity: Female Cognitive needs: No Hearing needs: No Vision needs: No Female Reproductive History Menstrual Age of Menarche: 15 Review of Systems Const All systems reviewed & are unremarkable except as noted in HPI and below Reports as per HPI and Reports no additional complaints GI Reports no additional complaints Reports no additional complaints Telehealth Telehealth Telehealth Platform: [facility] Location of provider rendering services: practice address Location of patient: address on file Patient Identification confirmed using: Name, : Yes Telehealth method: video Patient verbally consented to treatment: Yes Patient verbally consented to billing insurance company: Yes Patient informed of any privacy concerns related to visit: Yes Minutes spent on Phone/Video with Pt.: 3 Assessment & Plan Assessment & Plan (1) Menopausal state: Code(s): N95.1 - Menopausal and female climacteric states Category: Medical Plan: Discussed with the patient the results of the FSH/LH in the menopausal range. Instructions given the patient to call in case of vaginal bleeding will proceed with endometrial biopsy to rule out endometrial pathology including endometrial hyperplasia and/or malignancy. All questions answered, the patient verbalized understanding I spent a total of 20 minutes reviewing the chart, talking to the patient via video and documenting in the medical record. Coding Level of Care Code Tele Est Pt Level 3 (49352) Diagnoses Menopausal state N95.1
--- OUTSIDE RECORDS SUMMARY | 2024-10-16 14:47 | XMS_ITS | Patient Health Record ---
Author Organization [facility] Address [address] [address] Care Team Providers Care Food And Beverage Manager Name Role Phone Tonya Mccrary Primary Care Provider Unavaillizbet e Angel LuisRadha Unavailable [phone] Allergies Allergen (clinical drug ingredient) Drug/Non Drug [...] Problem Acquired hammer toe of left foot ([id number] 103) Other hammer toe(s) (acquired), left foot (M20.42) Active confirmed Plan Of Treatment Pending Test Test Name Order Date X ray : Foot, left 3V 08/16/2022 Insurance Providers Payer Name Payer Address Payer Phone Subscriber Number Group Number Insured Name Patient Relationship to Insured Coverage Start Date Coverage End Date [facility] [address] [place] [address] [phone] [id number] Epi Viera Spouse - patient is the spouse of the insured Medical (General) History Surgical History Surgery Date(Month/Year)
== END 2024-10-16 13:04 | disposition home or self-care (01) ==
LOC: HO.HWS 12:41
PROVIDERS: PCP Internal Medicine; Visit Provider Obstetrics & Gynecology
DX: N95.1 Menopausal and female climacteric states (principal)
CPT/HCPCS: 99213

== ENCOUNTER 2024-11-08 11:10 | Outpatient (AMB) | payer BC, SELFPAY ==
--- NOTE | 2024-11-08 11:31 | A.OFFPC_ITS ---
Vital Signs 11/08/24 11:32 Height 5 ft 4 in Weight 119 lb 8 oz BMI 20.5 BP 120/70 Blood Pressure Location Lt brachial Position Sitting Pulse 67 Pulse Source Pulse Oximeter Temp 97.3 F Temp Source Temporal Artery Scan Pulse Oximetry (%) 98 Oxygen Delivery Method Room Air Intake Visit Reasons: referral to [facility] Intake Note: Patient is here to follow up on referral to [facility]. Kersey Department Supervisor Required: No Money Laundering Investigator: Not Required per policy Accompanied by: Self / Same As Patient Allergies amoxicillin Allergy (Unknown, Verified 11/08/24 12:01) Rash Medication List - Last Reconciled 11/08/24 by Aimee Huff PA-C No Known Home Meds Tobacco use date assessed: 11/08/24 Dental Screening Dental Screen Date: 11/08/24 Did you have a dental visit in the last 12 months?: Yes Did you have a dental problem in the last 6 months where you did not have access to dental care?: No Was dental information given to patient?: Patient has dentist HPI referral to [facility] HPI Details The patient is a 54-year-old female presenting with a need for a dermatology referral for a skin lesion check and follow-up for cholesterol management. She reports concerns about a newly observed dark spot on her back, and annual skin checkups have been interrupted since the pandemic, leaving her anxious about potential skin issues. The patient's history of hyperlipidemia has prompted lifestyle changes, including increased exercise, which has resulted in non-painful joint crepitus. Social History - Functional status: Active exercise has been increased to manage cholesterol. - Exercise: Increased exercise regimen d ue to high cholesterol. - Level of activity: Actively engaging i n physical activities to manage cholesterol. [facility] Medical History Joint crepitus Numerous moles Paresthesia of left foot Hyperlipidemia, unspecified Numbness of toes Surgical History History of colonoscopy (~01/06/22) Family History Unknown No family history of colorectal cancer Mother No problems noted. Father Alcoholism Other Substance use disorder Social History Household Members Other:: single, 2 kids Housing: House Alcohol intake: never Patient Tobacco Use Status: Never used Tobacco e-Cigarette/Vaping Use: Never Used Second Hand Smoke Exposure: No service: No Current occupational status: employed Sexual orientation: Straight/Heterosexual Gender identity: Female Cognitive needs: No Hearing needs: No Vision needs: No Female Reproductive History Menstrual Age of Menarche: 15 Questionnaire PHQ-9 Over the last 2 weeks, how often have you been bothered by any of the following problems? 1. Little interest or pleasure in doing things: not at all 2. Feeling down, depressed, or hopeless: not at all 3. Trouble falling or staying asleep, or sleeping too much: not at all 4. Feeling tired or having little energy: not at all 5. Poor appetite or overeating: not at all 6. Feeling bad about yourself - or that you are a failure or have let yourself or your family down: not at all 7. Trouble concentrating on things, such as reading the newspaper or watching television: not at all 8. Moving or speaking so slowly that other people could have noticed. Or the opposite - being so fidgety or restless that you have been moving around a lot more than usual: not at all 9. Thoughts that you would be better off or of hurting yourself in some way: not at all Total score: 0 Depression Screening Interpretation: Negative Depression Screening Done: Yes 39793 - PHQ-9 Billing: Yes Source: Developed by Drs. Kash Villagomez, Valerie Hong, Cruz Taylor and colleagues, with an educational eliza from [employer]. Thrive Questionnaire Date Thrive assessed: 11/08/24 I am a: Patient What is your living situation today?: I have a steady place to live Within the past 12 months, did the food you bought not last and you didn't have the money to get more?: Never true Within the past 12 months, did you worry whether your food would run out before you got money to buy more?: Never true Do you have trouble paying for medicines?: No Do you have trouble getting transportation to medical appointments?: No Do you have trouble paying your heating and electricity bill?: No Do you have trouble taking care of your child, family member or friend?: No Do you have trouble with day-to-day activities such as bathing, preparing meals, shopping, managing finances, etc.?: No Are you currently unemployed and looking for a job?: No Are you interested in more education?: No Please select the resources that you would like help with: None Currently or been in a relationship where the following occur: No concerns reported THRIVE Score: 0 AUDIT C Alcohol Use Questionnaire (AUDIT-C) 2. How many drinks containing alcohol do you have on a typical day when you are drinking?: 1 or 2 3. How often do you have six or more drinks on one occasion?: Never Total Score: 0 Score Reviewed/Action Taken: No BRANDI-7 AMB Questionnaire BRANDI-7 Date BRANDI - 7 assessed: 11/08/24 Feeling nervous, anxious, or on edge: 0 = Not at all Not being able to stop or control worryin = Not at all Worrying too much about different things: 0 = Not at all Trouble relaxin = Not at all Being so restless that it is hard to sit still: 0 = Not at all Becoming easily annoyed or irritable: 0 = Not at all Feeling afraid as if something awful might happen: 0 = Not at all Total BRANDI-7 score (0-4 normal; 5-9 mild; 10-14 moderate; 15-21 severe): 0 Source: Developed by Drs. Kash Villagomez, Valerie Hong, Cruz Taylor and colleagues, with an educational eliza from [employer]. BRANDI-7 Assessment Billing BRANDI-7 Assessment Tool: BRANDI-7 Assessment 70898 Review of Systems Const Details: - Skin: Reports concern about a dark spot on back. - Musculoskeletal: Reports crepitus in joints without associated pain. - Endocrine: Denies any current symptoms of diabetes. Previous hyperlipidemia noted. Physical exam (Primary Care) Vital Signs: Last Vital Signs Temp 97.3 F 11/08/24 11:32 Pulse 67 11/08/24 11:32 BP 120/70 11/08/24 11:32 Pulse Ox 98 11/08/24 11:32 Oxygen Delivery Method Room Air 11/08/24 11:32 Care Plan Goal for BP management: <130/90 at Goal BMI result Body Mass Index 20.5 Tobacco/Smoking Status: Tobacco use Status Tobacco use date assessed 11/08/24 11/08/24 11:37 Patient Tobacco Use Status Never used Tobacco 11/08/24 11:37 e-Cigarette/Vaping Use Never Used 11/08/24 11:37 PHQ-9: PHQ-9 Score PHQ-9: Total score 0 11/08/24 12:02 Depression Screening Interpretation: Negative Thrive Assessment: Date of Thrive Assessment Date Thrive assessed 11/08/24 11/08/24 11:37 Currently or been in a relationship where the following occur: No concerns reported Const Other: Appearance: Alert. Oriented X3. No acute distress. Head: Normal external exam. Normocephalic. Atraumatic. Eyes: Pupils are equal, round, and reactive to light. Extraocular movements intact. Conjunctiva and sclera normal. Eyelids normal. Throat: Pharynx normal. Uvula midline. Moist mucous membranes. Neck: Normal inspection. Neck supple. Full range of motion. Cardiovascular: Normal heart rate and rhythm. Respiratory: No respiratory distress. Painless inspiration. Back:Full range of motion noted. Skin: Skin warm and dry. Normal skin color. Normal skin turgor. No rashes/lesions/lacerations noted. Multiple nevi noted to back. A darker spot noted, not raised, with a small raised spot nearby. No signs of infection. Extremities: Extremities exhibit normal range of motion. Extremities nontender. Patient reports sensation of sand in joints but no pain. Neuro: Oriented X 3. Coding Level of Care Code Est Pt Level 3 (68888) Complex EM visit Add On G2211 Diagnoses Numerous moles D22.9 Joint crepitus M24.80 Hyperlipidemia, unspecified E78.5 Additional Codes BRANDI-7 Assessment Billing - BRANDI-7 Assessment Tool: BRANDI-7 Assessment 72657 ([id number]) PHQ-9 - 05177 - PHQ-9 Billing: Yes ([id number]) Assessment & Plan Assessment & Plan (1) Numerous moles: Code(s): D22.9 - Melanocytic nevi, unspecified Category: Medical Plan: A dermatology referral was provided due to concern about a potential skin lesion, despite no irregular findings on physical examination. Condition is chronic and stable will refer to Dermatology. Will continue to monitor. (2) Joint crepitus: Code(s): M24.80 - Other specific joint derangements of unspecified joint, not elsewhere classified Category: Medical Plan: Discussion of potential benefits of physical therapy for symptomatic relief and prevention of joint concerns. Patient agreed to monitor symptoms and pursue therapy as needed. Condition is chronic and stable continue to monitor. (3) Hyperlipidemia, unspecified: Code(s): E78.5 - Hyperlipidemia, unspecified Category: Medical Plan: Ongoing monitoring and management of hyperlipidemia are planned, including a lipid panel, hemoglobin A1c, and vitamin D test before the next appointment. These evaluations aim to determine the effect of lifestyle modifications on cholesterol levels. Plan Plan Patient was informed and verbally consented to the use of an ambient scribe for clinic note documentation during this visit. 1. Hyperlipidemia Ongoing monitoring and management of hyperlipidemia are planned, including a lipid panel, hemoglobin A1c, and vitamin D test before the next appointment. These evaluations aim to determine the effect of lifestyle modifications on cholesterol levels. 2. Dermatology Referral A dermatology referral was provided due to concern about a potential skin lesion, despite no irregular findings on physical examination. 3. Joint Crepitus Without Pain Discussion of potential benefits of physical therapy for symptomatic relief and prevention of joint concerns. Patient agreed to monitor symptoms and pursue therapy as needed. I discussed with the patient the importance of resuming annual skin examinations given the interruption during -19, emphasizing vigilance in monitoring skin changes. The potential dermatological referral was planned, allowing the patient to address concerns about a suspicious spot visually undetectable to her. I highlighted the management plan for hyperlipidemia, which includes laboratory tests before her next visit to measure the efficacy of lifestyle changes. Regarding joint crepitus, I reassured the patient that while crepitus could point towards arthritic changes associated with increased exercise, it is non- painful in her case. Further physical therapy might aid in joint care. Orders: Orders Lipid Panel Today Z00.00 - Encounter for general adult medical examination without abnormal findings Hemoglobin A1c Today Z00.00 - Encounter for general adult medical examination without abnormal findings Vitamin D 25-OH Total Today Z00.00 - Encounter for general adult medical examination without abnormal findings Referrals Dermatology Referral D22.9 - Melanocytic nevi, unspecified Patient Instructions: - Schedule a dermatology appointment for skin examination as soon as possible. - Follow up on cholesterol blood tests before the next appointment. - Continue with the current exercise routine, monitoring for any changes. - Consider physical therapy if joint clicking becomes problematic or painful. - Use the patient portal or call the office for any changes regarding referrals or appointments. - Attend follow-up appointment in January 03 for cholesterol re-evaluation and progress review.
[2024-11-08 11:32] VITALS: BP 120/70; PULSE 67; TEMP 36.3; O2SAT 98; BMI 20.5
--- OUTSIDE RECORDS SUMMARY | 2024-11-08 13:20 | XMS_ITS | Patient Health Record ---
[facility] Organization [facility] Address [address] [place] [address] Care Team Providers Care Colored Liquid Plastic Applier Name Role Phone Tonay Mccrary Primary Care Provider Unavaillizbet e Angel LuisRadha Unavailable [phone] Allergies Allergen (clinical drug ingredient) Drug/Non Drug [...] Problem Acquired hammer toe of left foot ([id number] 103) Other hammer toe(s) (acquired), left foot (M20.42) Active confirmed Plan Of Treatment Pending Test Test Name Order Date X ray : Foot, left 3V 08/16/2022 Insurance Providers Payer Name Payer Address Payer Phone Subscriber Number Group Number Insured Name Patient Relationship to Insured Coverage Start Date Coverage End Date [facility] [address] [place] [address] [phone] [id number] Epi Viera Spouse - patient is the spouse of the insured Medical (General) History Surgical History Surgery Date(Month/Year)
== END 2024-11-08 12:11 | disposition home or self-care (01) ==
LOC: HO.HMCH 11:10
PROVIDERS: PCP Internal Medicine; Visit Provider Physician Assistant Medical
DX: D22.9 Melanocytic nevi, unspecified (principal); M24.80 Other specific joint derangements of unspecified joint, not elsewhere classified; E78.5 Hyperlipidemia, unspecified

== ENCOUNTER → 2024-11-08 11:10 | Outpatient (BNVA) | payer BC, SELFPAY | PROVIDERS: PCP Internal Medicine; Visit Provider Physician Assistant Medical | DX: D22.9 Melanocytic nevi, unspecified (principal); M24.80 Other specific joint derangements of unspecified joint, not elsewhere classified; E78.5 Hyperlipidemia, unspecified | CPT/HCPCS: 96127 ==

== ENCOUNTER 2024-12-25 08:10 | Outpatient (REF) | payer BC, SELFPAY ==
[2024-12-25 10:56] LABS: Estimated Average Glucose 108 mg/dL; Hemoglobin A1C 126.2265 umol/L; Hemoglobin A1c % 5.4 % (<6.0); Total Hemoglobin (HGBA1C) 3563.7821 umol/L
[2024-12-25 10:57] LABS: Cholesterol 227 mg/dL (<200); HDL Cholesterol 80 mg/dL (>40); LDL Cholesterol Calculated 129 mg/dL (<100); Triglycerides 94 mg/dL (<150)
[2024-12-25 11:14] LABS: Vitamin D 25-OH Total 66.8 ng/mL (>30)
== END 2024-12-25 08:11 | disposition home or self-care (01) ==
LOC: HO.HMGCLDS 08:10
PROVIDERS: PCP Internal Medicine; Visit Provider Physician Assistant Medical
DX: Z00.00 Encounter for general adult medical examination without abnormal findings (principal)
CPT/HCPCS: 36415; 80061; 82306; 83036

== ENCOUNTER 2024-12-31 15:18 | Outpatient (AMB) | payer BC, SELFPAY ==
--- NOTE | 2024-12-31 15:45 | A.OFFVIS_ITS ---
Intake Visit Reasons: Breast lump Carrier Blower: Carrier Blower Present (ANTONIO Garsia) Accompanied by: Self / Same As Patient Allergies amoxicillin Allergy (Unknown, Verified 12/31/24 15:49) Rash HPI Comments Details: Presenting complaining of right breast lump no associated nipple discharge. The patient had right breast simple cyst that was aspirated in 2020 [facility] Medical History Hypercholesteremia Hyperlipidemia LDL goal <100 Joint crepitus Numerous moles Paresthesia of left foot Hyperlipidemia, unspecified Numbness of toes Surgical History History of colonoscopy (~01/06/22) Family History Unknown No family history of colorectal cancer Mother No problems noted. Father Alcoholism Other Substance use disorder Social History Household Members Other:: single, 2 kids Housing: House Alcohol intake: never Patient Tobacco Use Status: Never used Tobacco e-Cigarette/Vaping Use: Never Used Second Hand Smoke Exposure: No service: No Current occupational status: employed Sexual orientation: Straight/Heterosexual Gender identity: Female Cognitive needs: No Hearing needs: No Vision needs: No Female Reproductive History Menstrual Age of Menarche: 15 Physical Exam Chest Chest palpation & inspection: normal inspection of the chest and normal palpation of entire chest wall Breast/axilla inspection: normal inspection of the axillae Breast/axilla palpation: palpation of the breasts abnormal (Right breast 5 cm lump in size between 9 and 12 o'clock 2 cm from the nippl) Assessment & Plan Assessment & Plan (1) Breast lump: Comment: Right breast, 5 cm lump, between 9-12 o'clock, 2 cm from the nipple Code(s): N63.0 - Unspecified lump in unspecified breast Category: Medical Plan: Discussed with the patient the finding on Breast exam (breast lump) .The differ ential diagnosis includes but not limited to lump/cyst/pre cancer/cancer or dense breast tissue. The work up includes breast US and diagnostic mammogram and referred the patient for surgical breast consult. Orders: Orders MM tomosynthesis diagnostic RT Today N63.0 - Unspecified lump in unspecified breast US breast LT limited Today N63.0 - Unspecified lump in unspecified breast Referrals General Surgery Referral N63.0 - Unspecified lump in unspecified breast Coding Level of Care Code Est Pt Level 3 (90834) Diagnoses Breast lump N63.0
--- OUTSIDE RECORDS SUMMARY | 2024-12-31 17:11 | XMS_ITS | Patient Health Record ---
[facility] Address [address] [place] [address] Care Team Providers Care Film Vault Supervisor Name Role Phone Tonya Mccrary Primary Care Provider Unavaillizbet e Angel LuisRadha Unavailable [phone] Allergies Allergen (clinical drug ingredient) Drug/Non Drug [...] Problem Acquired hammer toe of left foot ([id number] 103) Other hammer toe(s) (acquired), left foot (M20.42) Active confirmed Plan Of Treatment Pending Test Test Name Order Date X ray : Foot, left 3V 08/16/2022 Insurance Providers Payer Name Payer Address Payer Phone Subscriber Number Group Number Insured Name Patient Relationship to Insured Coverage Start Date Coverage End Date [employer] [address] [place] [address] [phone] [id number] Epi Viera Spouse - patient is the spouse of the insured Medical (General) History Surgical History Surgery Date(Month/Year)
== END 2025-01-01 08:50 | disposition home or self-care (01) ==
LOC: HO.HWS 15:18
PROVIDERS: PCP Internal Medicine; Visit Provider Obstetrics & Gynecology
DX: N63.0 Unspecified lump in unspecified breast (principal)
CPT/HCPCS: 99213

== ENCOUNTER 2025-01-02 11:09 | Outpatient (REF) | payer BC, SELFPAY ==
--- NOTE | ~2025-01-02 | US_ITS ---
EXAMINATION: MM DIAGNOSTIC DIGITAL BREAST TOMOSYNTHESIS, RIGHT Limited right breast ultrasound. CLINICAL INFORMATION: Right breast pain and palpable lump upper outer breast. COMPARISON: Mammography: Priors on PACS. TECHNIQUE: Digital breast tomosynthesis is performed in both the craniocaudal and mediolateral oblique views along with computer-aided detection (CAD). Synthesized 2D images are generated from the tomosynthesis. FINDINGS: The breasts are heterogeneously dense, which may obscure small masses (ACR BI-RADS breast composition Category c). BB marker in the upper outer quadrant with an underlying circumscribed oval mass. No suspicious calcifications or other abnormal findings. Targeted color Doppler ultrasound scanning in the area the patient's palpable lump from 8 11:00 demonstrates a simple cyst at 10:00 11 cm from the nipple measuring 25 x 17 x 20 mm. There is an additional simple cyst at 9:00 4 cm from the nipple measuring 17 x 19 x 9 mm. US/US breast RT limited mamm only IMPRESSION: Simple cysts on ultrasound correlating with the patient's palpable and painful right breast lump. Benign. Clinical evaluation and follow-up is recommended at this time. The patient wishes to see a breast surgeon for options of further management. These cysts are amenable to ultrasound-guided aspiration, the findings and recommendations were discussed with the patient who will consider. ASSESSMENT: BI-RADS BI-RADS 2 - Benign Findings RECOMMENDATION: 1 year F/U Results were discussed with the patient at time of visit. This patient's information was entered into a reminder system with a target due date for their next mammogram. Electronically signed by: Alexandra Loja DO 01/02/2025 12:29 PM EDT
--- OUTSIDE RECORDS SUMMARY | 2025-01-02 12:55 | XMS_ITS | Patient Health Record ---
[facility] Address [address] [place] [address] Care Team Providers Care Well Service Derrick Worker Name Role Phone Tonya Mccrary Primary Care Provider Unavaillizbet e Angel LuisEsequielRadha Unavailable [phone] Allergies Allergen (clinical drug ingredient) Drug/Non Drug [...] Problem Status W/U Status Risk Notes Problem Other hammer toe(s) (acquired), left foot (M20.42) Active confirmed Plan Of Treatment Pending Test Test Name Order Date X ray : Foot, left 3V 08/16/2022 Insurance Providers Payer Name Payer Address Payer Phone Subscriber Number Group Number Insured Name Patient Relationship to Insured Coverage Start Date Coverage End Date [facility] [address] [place] [phone] [id number] Epi Viera Spouse - patient is the spouse of the insured Medical (General) History Surgical History Surgery Date(Month/Year)
== END 2025-01-02 11:10 | disposition home or self-care (01) ==
LOC: HO.MAMMO 11:09
PROVIDERS: PCP Physician Assistant Medical; Visit Provider Obstetrics & Gynecology
DX: N63.15 Unspecified lump in the right breast, overlapping quadrants (principal)
CPT/HCPCS: 76642; 77061; 77065

== ENCOUNTER → 2025-01-02 11:12 | Outpatient (BNV) | payer BC, SELFPAY | PROVIDERS: PCP Physician Assistant Medical; Visit Provider Internal Medicine | DX: N63.11 Unspecified lump in the right breast, upper outer quadrant (principal) | CPT/HCPCS: 76642; 77061; 77065 ==

== ENCOUNTER 2025-01-31 12:48 | Outpatient (AMB) | payer BC, SELFPAY ==
--- NOTE | 2025-01-31 12:57 | A.OFFVIS_ITS ---
Vital Signs 3 01/31/25 13:06 Height 5 ft 4 in Weight 117 lb BMI 20.1 BP 153/80 H Blood Pressure Location Lt brachial Position Sitting Pulse 63 Intake Visit Reasons: Unspecified lump in unspecified breast Intake Note: Patient is seen in office for unspecified lump in the breast. Pt c/o: right breast lump, tender, was seen in 2020 and was aspirated at the time, denies any changes in the lump, no fm hx of breast cancer, no prior breast surgeries mm/us:01/02/25 Induction Coordination Engineer Required: No Scrap Materials Buyer: Scrap Materials Buyer Present (Addie PORTILLO) Accompanied by: Self / Same As Patient Allergies amoxicillin Allergy (Unknown, Verified 01/31/25 13:04) Rash HPI Comments Details: 55-year-old female patient returning to the office with a recent enlarged breast cyst located in the right breast measuring approximately 5 cm in diameter. A right breast diagnostic mammogram and ultrasound was performed on 01/02/2025. This revealed 2 simple cysts in the right breast including a simple cyst in the 10-11 o'clock position 2 cm from the nipple measuring 25 x 17 x 20 mm. A 2nd simple cyst in the 9 o'clock position 4 cm from the nipple measured 17 x 19 x 9 mm. The cyst was initially quite large and painful. Since this time the cyst has decreased in size in his now asymptomatic. She reports that she is barely able to feel an enlarged cyst at this time. She denies any skin redness, discharge from the nipple or other enlarged masses. Her family history is negative for breast cancer breast surgery. A previous cyst in the right breast was aspirated on 10/31/2020. She previously had a Mirena IUD which was subsequently been removed. She is 2 para 2, 1st child was born when she was 21 years old. She breastfed both children. [facility] Medical History Hypercholesteremia Hyperlipidemia LDL goal <100 Joint crepitus Numerous moles Paresthesia of left foot Hyperlipidemia, unspecified Numbness of toes Surgical History History of colonoscopy (~01/06/22) Family History Unknown No family history of colorectal cancer Mother No problems noted. Father Alcoholism Other Substance use disorder Social History Household Members Other:: single, 2 kids Housing: House Alcohol intake: never Patient Tobacco Use Status: Never used Tobacco e-Cigarette/Vaping Use: Never Used Second Hand Smoke Exposure: No service: No Current occupational status: employed Sexual orientation: Straight/Heterosexual Gender identity: Female Cognitive needs: No Hearing needs: No Vision needs: No Female Reproductive History Menstrual Age of Menarche: 15 Review of Systems Const All systems reviewed & are unremarkable except as noted in HPI and below Physical Exam Vital Signs: Last Vital Signs Pulse 63 01/31/25 13:06 BP 153/80 H 01/31/25 13:06 BMI result Body Mass Index 20.1 Const General: cooperative and no acute distress Nutritional Appearance: well nourished Orientation/consciousness: patient oriented x3 Limitations: no limitations HEENT Head: Yes normocephalic and Yes atraumatic Ears: hearing grossly normal bilaterally Chest Other: Exam limited to right breast: Faintly palpable cyst in the 10:00 location approximately 2 cm from the nipple less than 1 cm in diameter. Second cyst in the 9 o'clock position approximately 4-5 cm from the nipple, smooth and round approximately 1.5 cm in diameter. Both cysts were non tender to palpation with no overlying skin changes. No other palpable mass, skin change, nipple discharge or enlarged lymph nodes. Chest/axillae images: 2 1. 2. Resp Effort & Inspection: normal respiratory effort, no audible wheezes, no cough and no respiratory distress Cardio Jugular venous distension: no JVD GI Inspection: Yes normal to inspection Skin Other: Warm, dry, no rash Neuro General: patient oriented x3 Extrem General: Yes no clubbing, cyanosis or edema Assessment & Plan Assessment & Plan (1) Benign breast cyst in female: Code(s): N60.09 - Solitary cyst of unspecified breast Category: Medical Qualifiers: Laterality: right Qualified Code(s): N60.01 - Solitary cyst of right breast Plan 55-year-old female patient presenting with a painful palpable large cyst noted in the right breast at the upper outer quadrant approximately 1 month ago, initially measuring approximately 5 cm in diameter. She subsequently underwent ultrasound and mammogram which confirmed to simple cysts with no other suspicious findings in the right breast. Since this time the cyst as regressed in size in his now asymptomatic. On examination findings are consistent with 2 small simple cysts with no other suspicious findings in the right breast. We discussed breast aspiration versus continued observation. As the cyst is currently asymptomatic I recommended observation. She is welcome to call should the cyst once again become painful. She expressed understanding and agrees with the plan. Coding Level of Care Code New Pt Level 4 (21431) Diagnoses Benign cyst of right breast in female N60.01 Laterality: right
[2025-01-31 13:06] VITALS: BP 153/80; PULSE 63; BMI 20.1
--- OUTSIDE RECORDS SUMMARY | 2025-01-31 13:13 | XMS_ITS | Patient Health Record ---
[facility] Address [address] [place] [address] Care Team Providers Care Crab Butcher Name Role Phone Tonya Mccarry Primary Care Provider Unavaillizbet e Angel LuisRadha Unavailable [phone] Allergies Allergen (clinical drug ingredient) Drug/Non Drug [...] Problem Acquired hammer toe of left foot ([id number] 103) Other hammer toe(s) (acquired), left foot (M20.42) Active confirmed Plan Of Treatment Pending Test Test Name Order Date X ray : Foot, left 3V 08/16/2022 Insurance Providers Payer Name Payer Address Payer Phone Subscriber Number Group Number Insured Name Patient Relationship to Insured Coverage Start Date Coverage End Date [facility] [address] [place] [address] [phone] [id number] Epi Viera Spouse - patient is the spouse of the insured Medical (General) History Surgical History Surgery Date(Month/Year)
== END 2025-01-31 13:19 | disposition home or self-care (01) ==
LOC: HO.HGS 12:48
PROVIDERS: PCP Internal Medicine; Visit Provider Surgery
DX: N60.01 Solitary cyst of right breast (principal)
CPT/HCPCS: 99204